=== PATIENT | female | born 1990 | race Caucasian/White ===

== ENCOUNTER 2016-12-14 13:27 | Emergency (ER) | payer OTHER ==
[~2016-12-14] VITALS: Ht 165.1 cm; Wt 63.6 kg
[2016-12-14 13:27] VITALS: BP 102/55; PULSE 59; RESP 14; O2SAT 100
[2016-12-14 14:00] LABS: BASOPHILS % (AUTO) 0.3 % (0-3); EOSINOPHILS % (AUTO) 1.2 % (0-5); MONOCYTES % (AUTO) 8.8 % (4-12); Mean Corpuscular Hemoglobin 28.4 pg (27.0-35.0); Mean Corpuscular Volume 84.4 fL (81-100); NEUTROPHILS % (AUTO) 43.4 % (40-74); Platelet Count 328 bil/L (150-400)
[2016-12-14 14:13] LABS: TROPONIN T < 0.010 ug/L (0.0-0.011)
[2016-12-14 14:40] VITALS: BP 101/60; PULSE 56; RESP 14; O2SAT 100
--- NOTE | 2016-12-14 15:02 | ED.REPORT ---
HPI-General Illness Date of Service Dec 14, 2016 ED Provider: Dr. Leal Pt is a 26 year old female presenting to the ED via EMS after a syncopal episode lasting 20-25 seconds that was witnessed by her father about 2 hours ago. Associated symptoms include tingling, lightheadedness, chills, pale skin, weakness, nausea, and a headache. She reports that she hit her head on the cement floor as she fell. Pt was sitting most of the day, and then began feeling tingling and lightheadedness in her fingers and head, then when she stood up she passed out. Denies any chest pain, neck pain, back pain, other injuries, or any other symptoms at this time. She reports 2 previous episodes, both associated with her heavy period, and that the last episode was months ago. Her menstrual period began yesterday. Nursing Notes Stated Complaint: SYNCOPE Chief Complaint: General Complaint Nursing Notes Reviewed: Yes Allergies: Coded Allergies: No Known Allergies (Unverified , 12/14/16) General Time Seen by MD: 15:02 Chief Complaint Other (Syncope) Hx Obtained From: Patient Arrived By: Ambulance Sudden in Onset?: Yes Onset Occurred: 1 - 4 hours ago Symptom Duration: Since onset Caused by: Fall on ground Location: : Head Quality: Painful Severity: Current: Mild Severity: Maximum: Moderate Recent Healthcare: No recent doctor visit, No recent hospitalization Similar Sx Previous: Yes Past Medical History Past Medical History TMJ Past Surgical History denies Family History Grandfather had sick sinus syndrome, and cousin had 2 minor heart attacks in her 20s Smoking History Unknown if Ever Smoker Ambulatory Status Independent Review of Systems Full Review of Systems Constitutional: Reports: Chills Cardiovascular: Denies: Chest pain GI: Reports: Nausea Musculoskeletal: Denies: Back pain, Neck pain Neurologic: Reports: Change LOC, Headache, Lightheaded, Weakness Complete sys rev & neg: except as marked. Physical Exam Nursing note and vitals reviewed. Constitutional: Well-developed, well-nourished. Not diaphoretic. Head: Normocephalic and atraumatic. Mouth/Throat: Oropharynx is clear and moist. No oropharyngeal exudate. Eyes: EOM are normal. Pupils are equal, round, and reactive to light. Neck: Supple, no tracheal deviation. Cardiovascular: Normal rate, regular rhythm. Equal and intact distal pulses throughout. No murmur, rub or gallop. Pulmonary/Chest: Effort normal and breath sounds normal. No respiratory distress. Abdominal: Soft. No distension. There is no tenderness, rebound, or guarding. Bowel sounds present. Musculoskeletal: Range of motion grossly intact, moving all extremities. No edema or tenderness appreciated. Neurological: AOx3. Grossly nonfocal exam. Strength and sensation intact and equal to bilateral upper and lower extremities. Normal finger to nose testing. Skin: Warm and dry, no rashes or pallor appreciated. Psychiatric: Appropriate mood and affect. Behavior appears normal. Vital Signs Vital Signs Date Time Temp Pulse Resp B/P Pulse Ox O2 Delivery O2 Flow Rate FiO2 12/14/16 23:58 73 20 109/66 98 Room Air 12/14/16 22:30 73 20 108/66 98 Room Air 12/14/16 20:46 70 16 107/60 98 Room Air 12/14/16 17:56 79 16 107/65 98 Room Air 12/14/16 14:40 56 14 101/60 100 12/14/16 13:27 36.3 59 14 102/55 100 Room Air Initial VS: Reviewed Interpretation & Diagnostics Interpretation & Diagnostics: REPEAT HEAD CT: IMPRESSION: No CT evidence of hemorrhage, mass or acute infarct. This report was transmitted to the emergency room at 12/14/2016 - 11:18:42 PM PDT. Lab Results Interpretation Result Diagram: 12/14/16 1357 12/14/16 1357 Test 12/14/16 13:57 White Blood Count 8.9th/mm3 (3.8-10.1) Red Blood Count 3.91mil/mm3 (3.90-5.20) Hemoglobin 11.1g/dL (12.0-15.6) Hematocrit 33.0% (35.0-46.0) Mean Corpuscular Volume 84.4fL (81-100) Mean Corpuscular Hemoglobin 28.4pg (27.0-35.0) Mean Corpuscular Hemoglobin Concent 33.6% (32.0-37.0) Red Cell Distribution Width 12.3% (12.3-15.4) Platelet Count 328bil/L (150-400) Neutrophils (%) (Auto) 43.4% (40-74) Lymphocytes (%) (Auto) 46.2% (14-46) Monocytes (%) (Auto) 8.8% (4-12) Eosinophils (%) (Auto) 1.2% (0-5) Basophils (%) (Auto) 0.3% (0-3) Sodium Level 137mEq/L (134-144) Potassium Level 3.5mEq/L (3.5-5.2) Chloride Level 99mEq/L (97-108) Carbon Dioxide Level 19mmol/L (18-29) Blood Urea Nitrogen 11mg/dL (6-20) Creatinine 0.61mg/dL (0.57-1.00) Estimat Glomerular Filtration Rate 173mL/min (>59) Glucose Level 118mg/dL (60-99) Calcium Level 9.2mg/dL (8.5-10.1) Total Bilirubin 0.4mg/dL (0.0-1.2) Aspartate Amino Transf (AST/SGOT) 14U/L (0-50) Alanine Aminotransferase (ALT/SGPT) 10U/L (0-32) Alkaline Phosphatase 41U/L (25-150) Troponin T < 0.010ug/L (0.0-0.011) Total Protein 7.1g/dL (6.4-8.4) Albumin 4.1g/dL (3.4-5.0) ECG Interpretation ECG Interpretation: No acute ischemic changes. Intervals within normal limits. Time: 13:50 Interpreted by: ED physician Normal ECG Interpretation: Normal sinus rhythm Abnormal Rate: 50 (55) CT Head Interpretation IMPRESSION: Questionable subarachnoid hemorrhage versus artifact within the inferior bilateral temporal lobes. Some streak artifact is visualized in this region from the adjacent dense skull base and air within the sphenoid sinuses. However, small subarachnoid hemorrhage cannot be entirely excluded. For this reason, [address] of the head is recommended to ensure stability of these findings. This was discussed with Dr. Leal at 5:14 PM on 12/14/16. Dictated by: Leona Geiger M.D. on 12/14/2016 at 17:10 Interpretation / Wet Read by: Interpret - Radiologist Re-Eval/Medical Decision Med Decision/Clinical Course In summary, 26-year-old female presenting to the ED for evaluation after a syncopal episode and head trauma earlier today. She was not having chest pain or palpitations prior to this episode. She did have some classic prodromal symptoms that may suggest a vasovagal etiology; she also states that she has had these in the past when she has had heavy periods. EKG reassuring. Her initial CT scan showed some findings that may be consistent with a small amount of subarachnoid blood; a repeat scan in 6 hours later demonstrates no evidence of bleed. It is possible that the initial scan demonstrated artifact. She has a reassuring neurologic exam here. Discussed w/ neurosurgery as per below; ok to d/c w/ outpatient f/u. Very careful return precautions were discussed. Patient agreeable to the plan as stated, no further questions. Time of Eval: 15:28 Patient Status: Condition improved Re-Evaluation/Progress Note: Discussed EKG and labs and plan for CT scan. Time of Eval: 17:32 Patient Status: Condition improved Re-Evaluation/Progress Note: Discussed CT results and plan for repeat CT in 6 hours. Time of Eval: 23:56 Patient Status: Condition improved Re-Evaluation/Progress Note: Discussed CT results and plan for discharge. Pt understands and agrees. Consultation : Referral / Consult Name: Harris Moss MD Consulted With: Neurosurgery Call Returned at: 22:32 Note: Nanda. If repeat scan is stable, she can be discharged with outpatient PCP followup. Counseled Regarding: Diagnosis, Lab results, Need for follow-up, When/why to return to ED Discharge & Departure Primary Impression: Syncope Syncope type: unspecified Qualified Code: R55 - Syncope and collapse Additional Impression: Head trauma Encounter type: initial encounter Qualified Code: S09.90XA - Unspecified injury of head, initial encounter Disposition: Home Discharge Condition All VS Reviewed: Yes Condition: Improved Patient Instructions: Syncope (ED) Additional Instructions: Your EKG and labs were reassuring today. Your repeat CT did not show any sign of head injury. Follow up with the [facility] clinic to get set up with a primary care doctor in the next few days. Follow up with an OBGYN doctor as well. Return to the ER if you develop any new or worsening symptoms including vomiting, severe headache, numbness, weakness, or fever. Referrals: [facility] Scribe Attestation Portions of this note were transcribed by Sarahy Jay. I, Dr. Leal personally performed the history, physical exam and medical decision-making; I reviewed and confirmed the accuracy of the information in the transcribed note. Signed by: Karmen Leung, 12/14/2016 at 0153. copies to: [facility] Luke Leal MD Dec 14, 2016 15:02 SARAHY JAY Dec 14, 2016 15:18
[2016-12-14] MEDS ORDERED: Ondansetron 2 mg/mL 2 mL Inj ONE (15:14)
--- NOTE | 2016-12-14 17:18 | DRSVH ---
PROCEDURE: CT BRAIN WITHOUT CONTRAST ([id number]) INDICATIONS: fall, syncope, LOC TECHNIQUE: Noncontrast 4.5 mm thick angled axial sections acquired from the foramen magnum to the vertex, with c oronal reformats. COMPARISON: None. FINDINGS: Image quality: Excellent. CSF spaces: Basal cisterns are patent. No extra-axial fluid collections. Ventricles are normal in size and shape. Brain: No midline shift. No intracranial masses. There is questionable increased subarachnoid radio pacity within the inferior bilateral temporal lobes versus artifact. No other findings to suggest int racranial hemorrhage. Mckinney-white matter interface is normal. Skull and face: A small subgaleal hematoma overlies the right occipital bone. Calvarium and visualiz ed facial bones are intact, without suspicious lesions. Sinuses: There is mild left maxillary sinus mucosal thickening. Visualized sinuses and mastoids are otherwise clear. IMPRESSION: Questionable subarachnoid hemorrhage versus artifact within the inferior bilateral tempor al lobes. Some streak artifact is visualized in this region from the adjacent dense skull base and ai r within the sphenoid sinuses. However, small subarachnoid hemorrhage cannot be entirely excluded. Fo r this reason, [address] of the head is recommended to ensure stability of these findings. This was discussed with Dr. Leal at 5:14 PM on 12/14/16. Dictated by: Leona Geiger M.D. on 12/14/2016 at 17:10 Approved by: Leona Geiger M.D. on 12/14/2016 at 17:17
[2016-12-14 17:56] VITALS: BP 107/65; PULSE 79; RESP 16; O2SAT 98
[2016-12-14 20:46] VITALS: BP 107/60; PULSE 70; RESP 16; O2SAT 98
[2016-12-14 22:30] VITALS: BP 108/66; PULSE 73; RESP 20; O2SAT 98
[2016-12-14 23:58] VITALS: BP 109/66; PULSE 73; RESP 20; O2SAT 98
--- NOTE | 2016-12-15 10:24 | DRSVH ---
PROCEDURE: CT BRAIN WITHOUT CONTRAST ([id number]) INDICATIONS: eval change from previous scan; [facility] TECHNIQUE: Noncontrast 4.5 mm thick angled axial sections acquired from the foramen magnum to the vertex, with c oronal reformats. COMPARISON: [facility], CT, CT BRAIN WO CON, 12/14/2016, 16:43. FINDINGS: Image quality: Excellent. CSF spaces: Basal cisterns are patent. No extra-axial fluid collections. Ventricles are normal in size and shape. Brain: No midline shift. No intracranial masses or hemorrhage. Mckinney-white matter interface is norm al. Skull and face: Calvarium and visualized facial bones are intact, without suspicious lesions. Sinuses: Visualized sinuses and mastoids are clear. IMPRESSION: 1. No acute intracranial process. Stable interval exam compared to 12/14/16 at 4:43 PM. Dictated by: Aileen Canseco M.D. on 12/15/2016 at 10:21 Approved by: Aileen Canseco M.D. on 12/15/2016 at 10:22
== END 2016-12-14 23:59 | disposition home or self-care (01) ==
LOC: EDBD 13:27 → SED 13:27
DX: R55 Syncope and collapse (principal); S09.8XXA Other specified injuries of head, initial encounter; Y93.89 Activity, other specified; Y92.89 Other specified places as the place of occurrence of the external cause; Y99.8 Other external cause status
CPT/HCPCS: 36415; 70450; 80053; 81002; 81025; 82948; 84484; 85025; 93005; 96374; 99285; J2405